=== PATIENT | female | born 1935 | race Caucasian/White ===

== ENCOUNTER 2019-02-15 12:29 | Emergency (ER) | payer MEDICARE ==
[~2019-02-15] VITALS: Ht 152.4 cm; Wt 54.4 kg
--- OUTSIDE RECORDS SUMMARY | 2019-02-15 12:32 | XMS REPORT | Summary of Care ---
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 She is supposed to be on thyroid medication but this is unsupervised and I suspect it is not being taken. This can cause cognitive impairment and gait disorder. If the thryoid is not abnormal, the etiology of her gait disorder is then unknown and would require further evaluation. Originally documented as Thyroid disease. 2Data migrated from [employer] on 07/16/15. Unclear etiology from exam. Originally documented as Gait abnormality. Allergies, Adverse Reactions, Alerts Substance Reaction Severity Status Ambien Active Bactrim Active NKFA Active Multaq Active Medications No data available for this section Results No data available for this section Immunizations No data available for this section Procedures Procedure Date Related Diagnosis Body Site Appendectomy1 Arthroscopy2 Cardiac ablation using fluoroscopy guidance3 L total Knee replacement Lumpectomy of breast4 Radiation therapy care5 LAUREEN - Total abdominal hysterectomy6 Tonsillectomy7 Total replacement of left knee joint 1done 1999 2left knee 3done 2009 4left breast done 2010 5done 2010 6done 1964 7done 1945 Social History Social History Type Response Exercise 1 Employment/School Status: Retired. Highest education level: High school. Alcohol Current, Frequency: 1-2 times per year. Previous treatment: None. Alcohol use interferes with work or home: No. Drinks more than intended: No. Others hurt by drinking: No. Ready to change: No. Household alcohol concerns: No. Smoking Status Never smoker; Previous treatment: None; Ready to change: No; Concerns about tobacco use in household: No; Exposure to Tobacco Smoke None; Cigarette Smoking Last 365 Days No; Reg Smoking Cessation Counseling No 1no Assessment and Plan No data available for this section
--- OUTSIDE RECORDS SUMMARY | 2019-02-15 12:32 | XMS REPORT | Summary of Care ---
Author Author [facility] Organization [facility] Address Unknown Phone Unavailable Encounter ANTWAN Dejesus(NITHYA) [id number] Date(s): 04/12/15 - 04/13/15 [facility] [address] [place] [address]- Discharge Disposition: Against Medical Advise Attending Physician: Jaguar Stroud MD Vital Signs Most recent to 1 oldest [Reference Range]: Height 157.48 cm (04/12/15 11:37 PM) Most recent to 1 oldest [Reference Range]: Temperature Oral 97.7 DegF [96.4-99.1 DegF] (04/12/15 11:37 PM) Most recent to 1 oldest [Reference Range]: Blood Pressure 121/77 mmHg [90-140/60-90 mmHg] (04/12/15 11:37 PM) Most recent to 1 oldest [Reference Range]: Respiratory Rate 18 BRMIN [14-20 BRMIN] (04/12/15 11:37 PM) Most recent to 1 oldest [Reference Range]: Peripheral Pulse 78 bpm Rate [60-100 bpm] (04/12/15 11:37 PM) Most recent to 1 oldest [Reference Range]: Weight 59.091 kg (04/12/15 11:37 PM) Most recent to 1 oldest [Reference Range]: Body Mass Index 23.83 m2 (04/12/15 11:37 PM) Problem List No data available for this section Allergies, Adverse Reactions, Alerts Substance Reaction Severity Status Ambien Active Bactrim Active Multaq Active NKFA Active Medications Saline Flush 0.9% 10 mL, Route: IVP, Drug Form: INJ, Dosing Weight 59.091, kg, PRN, PRN Line Flush , Start date: 04/13/15 0:04:00, Duration: 30 day, Stop date: 05/12/15 23:03:00 Notes: (Same as: BD Posiflush) Start Date: 04/13/15 Stop Date: 04/13/15 Status: Discontinued Sodium Chloride 0.9% IV (Sodium Chloride 0.9% (Bolus) IV) 500 mL, 500 ml/hr, Infuse Over: 1 hr, Route: IV, 500, Drug form: INJ, ONCE, Prio rity: STAT, Dosing Weight 59.091 kg, Start date: 04/13/15 0:04:00, Duration: 1 d oses or times, Stop date: 04/13/15 0:04:00 Start Date: 04/13/15 Stop Date: 04/13/15 Status: Completed Results ELECTROLYTES Most recent to 1 oldest [Reference Range]: Sodium Lvl [135-145 135 mEq/L mEq/L] (04/13/15 12:50 AM) Potassium Lvl 4.2 mEq/L [3.5-5.1 mEq/L] (04/13/15 12:50 AM) Chloride Lvl [95-109 104 mEq/L mEq/L] (04/13/15 12:50 AM) CO2 [24-32 mEq/L] 19 mEq/L *LOW* (04/13/15 12:50 AM) AGAP [10.0-20.0 16.2 mEq/L mEq/L] (04/13/15 12:50 AM) CHEM PANEL Most recent to 1 oldest [Reference Range]: Creatinine Lvl 1.1 mg/dL [0.5-1.4 mg/dL] (04/13/15 12:50 AM) eGFR 48 mL/min/1.73m2 1 *NA* (04/13/15 12:50 AM) BUN [7-22 mg/dL] 17 mg/dL (04/13/15 12:50 AM) Glucose Lvl [70-99 109 mg/dL mg/dL] *HI* (04/13/15 12:50 AM) Calcium Lvl 9.2 mg/dL [8.5-10.5 mg/dL] (04/13/15 12:50 AM) 1Result Comment: The eGFR is calculated using the CKD-EPI formula. In most young, healthy individuals the eGFR will be >90 mL/min/1.73m2. The eGFR declines with age. An eGFR of 60-89 may be normal in some populations, particularly the elderly, for whom the CKD-EPI formula has not been extensively validated. Use of the eGFR is not recommended in the following populations: Individuals with unstable creatinine concentrations, including patients and those with serious co-morbid conditions. Patients with extremes in muscle mass or diet. The data above are obtained from the National Kidney Disease Education Program ( NKDEP) which additionally recommends that when the eGFR is used in patients with extremes of body mass index for purposes of drug dosing, the eGFR should be mul tiplied by the estimated BMI. CARDIAC ENZYMES Most recent to 1 oldest [Reference Range]: Total CK [12-191 90 unit/L unit/L] (04/13/15 12:50 AM) CK MB [0.5-3.6 0.9 ng/mL ng/mL] (04/13/15 12:50 AM) CK MB Index 1.0 [0.0-2.5] (04/13/15 12:50 AM) Troponin-I <0.02 ng/mL [0.00-0.40 ng/mL] (04/13/15 12:50 AM) HEMATOLOGY Most recent to 1 oldest [Reference Range]: WBC [3.7-10.4 K/CMM] 6.5 K/CMM (04/13/15 12:50 AM) RBC [4.20-5.40 4.11 M/CMM M/CMM] *LOW* (04/13/15 12:50 AM) Hgb [12.0-16.0 g/dL] 12.4 g/dL (04/13/15 12:50 AM) Hct [36.0-48.0 %] 37.4 % (04/13/15 12:50 AM) MCV [80.0-98.0 fL] 91.0 fL (04/13/15 12:50 AM) MCH [27.0-31.0 pg] 30.3 pg (04/13/15 12:50 AM) MCHC [32.0-36.0 33.3 g/dL g/dL] (04/13/15 12:50 AM) RDW [11.5-14.5 %] 14.1 % (04/13/15 12:50 AM) Platelet [133-450 221 K/CMM K/CMM] (04/13/15 12:50 AM) MPV [7.4-10.4 fL] 7.3 fL *LOW* (04/13/15 12:50 AM) Segs [45.0-75.0 %] 74.2 % (04/13/15 12:50 AM) Lymphocytes 17.6 % [20.0-40.0 %] *LOW* (04/13/15 12:50 AM) Monocytes [2.0-12.0 5.8 % %] (04/13/15 12:50 AM) Eosinophils [0.0-4.0 1.5 % %] (04/13/15 12:50 AM) Basophils [0.0-1.0 0.9 % %] (04/13/15 12:50 AM) Segs-Bands # 4.8 K/CMM [1.5-8.1 K/CMM] (04/13/15 12:50 AM) Lymphocytes # 1.1 K/CMM [1.0-5.5 K/CMM] (04/13/15 12:50 AM) Monocytes # [0.0-0.8 0.4 K/CMM K/CMM] (04/13/15 12:50 AM) Eosinophils # 0.1 K/CMM [0.0-0.5 K/CMM] (04/13/15 12:50 AM) Basophils # [0.0-0.2 0.1 K/CMM K/CMM] (04/13/15 12:50 AM) Immunizations No data available for this section Procedures Procedure Date Related Diagnosis Body Site Appendectomy1 Arthroscopy2 Cardiac ablation using fluoroscopy guidance3 L total Knee replacement Lumpectomy of breast4 Radiation therapy care5 LAUREEN - Total abdominal hysterectomy6 Tonsillectomy7 Total replacement of left knee joint 1done 1999 2left knee 3done 2009 4left breast done 2010 5done 2010 6done 1964 7done 6 Social History Social History Type Response Exercise 1 Alcohol Current, Frequency: 1-2 times per year. [...]
--- OUTSIDE RECORDS SUMMARY | 2019-02-15 12:32 | XMS REPORT | Continuity of Care Document ---
Author Author [employer] Organization [facility] [employer] Address Unknown Phone Unavailable Care Team Providers Care Check Scaler Name Role Phone [facility] [employer] [facility] Unavailable Unavailable Problems Problem Status Onset Date Classification Date Reported Comments Source Disease of thyroid gland (disorder) Active 01/29/2016 Problem 12/28/2017 Data migrated from [employer] on 07/16/15. She is supposed to be on thyroid medication but this is unsupervised and I suspect it is not being taken. This can cause cognitive impairment and gait dis order. If the thryoid is not abnormal, the etiology of her gait disorder is then unknown and would require further evaluation. Originally documented as Thyroid disease. [facility] Neuro SYNCOPE Active 04/12/2015 [facility] 782.3 - EDEMA 782.0 - SKIN SENSATION Active 07/11/2014 [facility] AFIB Active 11/02/2013 [facility] Atrial fibrillation (disorder) Resolved Problem 12/28/2017 [facility] Dementia with behavioral disturbance (disorder) Active Problem 12/28/2017 [facility] Hypothyroidism (disorder) Resolved Problem 12/28/2017 [facility] Malignant tumor of breast (disorder) Resolved Problem 12/28/2017 [facility] ankle swelling(Confirmed) Active Problem 01/07/2014 [facility] chronic cough(Confirmed) Active Problem 01/07/2014 [facility] osteoarthritis of left knee(Confirmed) Active Problem 01/07/2014 [facility] ATRIAL FIBRILLATION Active [facility] Medications Medication Details Route Status Patient Instructions Ordering Provider Order Date Source Sodium Chloride 0.154 MEQ/ML Injectable Solution 500 mL, 500 ml/hr, Infuse Over: 1 hr, Route: IV, 500, Drug form: INJ, ONCE, Priority: STAT, Dosing Weight 59.091 kg, Start date: 04/13/15 0:04:00, Duration: 1 doses or times, Stop date: 04/13/15 0:04:00 Inactive 04/13/2015 [facility] Saline Flush 0.9% 10 mL, Route: IVP, Drug Form: INJ, Dosing Weight 59.091, kg, PRN, PRN Line Flush, Start date: 04/13/15 0:04:00, Duration: 30 day, Stop date: 05/12/15 23:03:00Notes: (Same as: BD Posiflush) Inactive 04/13/2015 [facility] Xarelto 10 mg, 1 tab, Route: PO, Drug form: TAB, ONCE, Dosing Weight 59.091, kg, Start date: 11/24/13 13:30:00, Stop date: 11/24/13 13:30:00Notes: (Same as: Xarelto) Do Not Crush Inactive 11/24/2013 [facility] rivaroxaban 10 MG Oral Tablet [Xarelto] 10 mg=1 tab, PO, Daily, # 30 tab, 0 Refill(s) Active 11/24/2013 [facility] letrozole 2.5 mg, 1 tab, Route: PO, Drug form: TAB, Daily, Dosing Weight 59.091, kg, Start date: 11/24/13 9:00:00, Duration: 30 day, Stop date: 12/23/13 9:00:00Notes: (Same as:Femara) Inactive 11/24/2013 [facility] venlafaxine 37.5 mg, 1 tab, Route: PO, Drug form: TAB, Daily, Dosing Weight 59.091, kg, Start date: 11/24/13 9:00:00, Duration: 30 day, Stop date: 12/23/13 9:00:00Notes: (Same As: Effexor) Inactive 11/24/2013 [facility] meloxicam 7.5 mg, 1 tab, Route: PO, Drug form: TAB, Daily, Dosing Weight 59.091, kg, Start date: 11/24/13 9:00:00, Duration: 30 day, Stop date: 12/23/13 9:00:00Notes: (Same as: Mobic) Inactive 11/24/2013 [facility] Thyroxine 75 microgram, 1 tab, Route: PO, Drug form: TAB, Q630AM, Dosing Weight 59.091, kg, Start date: 11/24/13 6:30:00, Duration: 30 day, Stop date: 12/23/13 6:30:00Notes: Take 1 hour before or 2 hours after meal; Enteral feeds may interefere with the absorption of this medication. (Same as:Synthroid, Levothroid) Inactive 11/24/2013 [facility] heparin 25,000 unit [13.54 unit/kg/hr] + Premix Diluent Dextrose 5% 500 mL 500 mL, Rate: 16 ml/hr, Infuse over: 31.3 hr, Route: IV, Dosing Weight 59.091 kg, Total Volume: 500, Start date: 11/24/13 2:00:00, Duration: 30 day, Stop date: 12/24/13 1:59:00 Inactive 11/24/2013 [facility] 0.6 ML Enoxaparin sodium 100 MG/ML Prefilled Syringe [Lovenox] 60 mg, SUB-Q, Q12H, # 20 syr, 0 Refill(s) No Longer Active 11/23/2013 [facility] Acetaminophen 325 MG / Hydrocodone Bitartrate 5 MG Oral Tablet 1 tab, Route: PO, Drug Form: TAB, Dosing Weight 59.091, kg, Q4H, PRN Pain Score 1-5, Start date: 11/23/13 16:47:00, Duration: 30 day, Stop date: 12/23/13 16:46:00Notes: (Same as: [place] 325/5) Do not exceed 4gm/day of acetaminophen. No Longer Active 11/23/2013 [facility] Melatonin 20 mg, 6.67 tab, Route: PO, Drug form: TAB, Bedtime, Dosing Weight 59.091, kg, PRN as needed for insomnia, Start date: 11/23/13 16:42:00, Duration: 30 day, Stop date: 12/23/13 16:41:00Notes: (Same as: Melatonin) Non-Formulary Drug No Longer Active 11/23/2013 [facility] rivaroxaban 10 MG Oral Tablet [Xarelto] PO, Daily, 0 Refill(s) No Longer Active 11/23/2013 [facility] letrozole 2.5 mg oral tablet 2.5 mg=1 tab, PO, Daily, # 10 tab, 0 Refill(s) Active 11/22/2013 [facility] venlafaxine 37.5 mg oral tablet 37.5 mg=1 tab, PO, Daily, # 60 tab, 0 Refill(s) Active 11/22/2013 [facility] meloxicam 7.5 mg oral tablet 7.5 mg=1 tab, PO, Daily, # 30 tab, 0 Refill(s) Active 11/22/2013 [facility] Melatonin 5 mg oral tablet 20 mg=4 tab, PO, Bedtime, for insomnia, # 60 tab, 0 Refill(s) Active 11/22/2013 [facility] levothyroxine 75 mcg (0.075 mg) oral tablet 75 microgram=1 tab, PO, Daily, # 30 tab, 0 Refill(s) Active 11/22/2013 [facility] Allergies, Adverse Reactions, Alerts Substance Category Reaction Severity Reaction type Status Date Reported Comments Source Ambien Assertion Drug allergy Active [facility] Bactrim Assertion Drug allergy Active [facility] NKFA Assertion Drug allergy Active [facility] Multaq Assertion Drug allergy Active [facility] Immunizations No Data Provided for This Section Results Order Name Results Value Reference Range Date Interpretation Comments Source CARDIAC ENZYMES CK MB Index 1.0 0.0 - 2.5 04/13/2015 [facility] CARDIAC ENZYMES Total CK 90 12 - 191 04/13/2015 [facility] CARDIAC ENZYMES Troponin-I <0.02 0.00 - 0.40 04/13/2015 [facility] CARDIAC ENZYMES CK MB 0.9 0.5 - 3.6 04/13/2015 [facility] CHEM PANEL eGFR 48 04/13/2015 Result Comment: The eGFR is calculated using the [...] from the National Kidney Disease Education Program (NKDEP) which additionally recommends that when the eGFR is used in patients with extremes of body mass index for purposes of drug dosing, the eGFR should be multiplied by the estimated BMI. [facility] CHEM PANEL Glucose Lvl 109 70 - 99 04/13/2015 [facility] CHEM PANEL Calcium Lvl 9.2 8.5 - 10.5 04/13/2015 [facility] CHEM PANEL CO2 19 24 - 32 04/13/2015 [facility] CHEM PANEL Chloride Lvl 104 95 - 109 04/13/2015 [facility] CHEM PANEL Potassium Lvl 4.2 3.5 - 5.1 04/13/2015 [facility] CHEM PANEL Sodium Lvl 135 135 - 145 04/13/2015 [facility] CHEM PANEL Creatinine Lvl 1.1 0.5 - 1.4 04/13/2015 [facility] CHEM PANEL BUN 17 7 - 22 04/13/2015 [facility] CHEM PANEL AGAP 16.2 10.0 - 20.0 04/13/2015 [facility] HEMATOLOGY Lymphocytes # 1.1 1.0 - 5.5 04/13/2015 [facility] HEMATOLOGY Monocytes # 0.4 0.0 - 0.8 04/13/2015 [facility] HEMATOLOGY Eosinophils # 0.1 0.0 - 0.5 04/13/2015 [facility] HEMATOLOGY Basophils # 0.1 0.0 - 0.2 04/13/2015 [facility] HEMATOLOGY Basophils 0.9 0.0 - 1.0 04/13/2015 [facility] HEMATOLOGY Segs-Bands # 4.8 1.5 - 8.1 04/13/2015 [facility] HEMATOLOGY Segs 74.2 45.0 - 75.0 04/13/2015 [facility] HEMATOLOGY Monocytes 5.8 2.0 - 12.0 04/13/2015 [facility] HEMATOLOGY Lymphocytes 17.6 20.0 - 40.0 04/13/2015 [facility] HEMATOLOGY Eosinophils 1.5 0.0 - 4.0 04/13/2015 [facility] HEMATOLOGY MPV 7.3 7.4 - 10.4 04/13/2015 [facility] HEMATOLOGY Platelet 221 133 - 450 04/13/2015 [facility] HEMATOLOGY RDW 14.1 11.5 - 14.5 04/13/2015 [facility] HEMATOLOGY Hgb 12.4 12.0 - 16.0 04/13/2015 [facility] HEMATOLOGY MCHC 33.3 32.0 - 36.0 04/13/2015 [facility] HEMATOLOGY MCH 30.3 27.0 - 31.0 04/13/2015 [facility] HEMATOLOGY MCV 91.0 80.0 - 98.0 04/13/2015 [facility] HEMATOLOGY Hct 37.4 36.0 - 48.0 04/13/2015 [facility] HEMATOLOGY RBC 4.11 4.20 - 5.40 04/13/2015 [facility] HEMATOLOGY WBC 6.5 3.7 - 10.4 04/13/2015 [facility] PTT 25.5 22.9 - 35.8 11/24/2013 <sup>7</sup>Interpretive Data: Heparin Therapeutic Range: 57 - 92 Seconds [facility] INR 1.09 0.85 - 1.17 11/24/2013 <sup>5</sup>Interpretive Data: RECOMMENDED RANGES FOR PROTIME INR:
2.0-3.0 for most medical and surgical thromboembolic states.
2.5-3.5 for artificial heart valves and recurrent embolism.

INR SHOULD BE USED ONLY FOR PATIENTS ON STABLE ANTICOAGULANT THERAPY. [facility] PT 14.0 12.0 - 14.7 11/24/2013 [facility] CHEM PANEL eGFR 54 11/24/2013 <sup>1</sup>Result Comment: The eGFR is calculated using the CKD-EPI formula. In most young, healthy individuals the eGFR will be >90 mL/min/1.73m2. The eGFR declines with age. An eGFR of 60-89 may be normal in some populations, particularly the elderly, for whom the CKD-EPI formula has not been extensively validated. Use of the eGFR is not recommended in the following populations:& lt;br/>
Individuals with unstable creatinine concentrations, including patients and those with serious co-morbid conditions.

Patients with extremes in muscle mass or diet.

The data above are obtained from the National Kidney Disease Education Program (NKDEP) which additionally recommends that when the eGFR is used in patients with extremes of body mass index for purposes of drug dosing, the eGFR should be multiplied by the estimated BMI. [facility] CHEM PANEL Calcium Lvl 8.9 8.5 - 10.5 11/24/2013 [facility] CHEM PANEL Potassium Lvl 3.8 3.5 - 5.1 11/24/2013 [facility] CHEM PANEL Chloride Lvl 107 95 - 109 11/24/2013 [facility] CHEM PANEL CO2 25 24 - 32 11/24/2013 [facility] CHEM PANEL Glucose Lvl 101 70 - 99 11/24/2013 <sup>3</sup>Interpretive Data: Adult reference range values reflect the clinical guidelines
of the [place] [employer]. [facility] CHEM PANEL Sodium Lvl 140 135 - 145 11/24/2013 [facility] CHEM PANEL BUN 17 7 - 22 11/24/2013 [facility] CHEM PANEL Creatinine Lvl 1.0 0.5 - 1.4 11/24/2013 [facility] CHEM PANEL AGAP 11.8 10.0 - 20.0 11/24/2013 [facility] HEMATOLOGY Eosinophils # 0.3 0.0 - 0.5 11/24/2013 [facility] HEMATOLOGY Monocytes # 0.5 0.0 - 0.8 11/24/2013 [facility] Lymphocytes # 1.0 1.0 - 5.5 11/24/2013 [facility] Segs-Bands # 2.9 1.5 - 8.1 11/24/2013 [facility] Lymphocytes 21.8 20.0 - 40.0 11/24/2013 [facility] Segs 62.0 45.0 - 75.0 11/24/2013 [facility] Monocytes 10.0 2.0 - 12.0 11/24/2013 [facility] Basophils 0.2 0.0 - 1.0 11/24/2013 [facility] Eosinophils 6.0 0.0 - 4.0 11/24/2013 [facility] MCV 88.5 81.0 - 99.0 11/24/2013 [facility] Hct 33.3 36.0 - 48.0 11/24/2013 [facility] Platelet 162 133 - 450 11/24/2013 [facility] RBC 3.76 4.20 - 5.40 11/24/2013 [facility] Hgb 11.1 12.0 - 16.0 11/24/2013 [facility] WBC 4.6 3.7 - 10.4 11/24/2013 [facility] MCHC 33.5 32.0 - 36.0 11/24/2013 [facility] RDW 14.5 11.5 - 14.5 11/24/2013 [facility] MCH 29.6 27.0 - 31.0 11/24/2013 [facility] MPV 7.8 7.4 - 10.4 11/24/2013 [facility] POC Activated Clotting Time 176 11/24/2013 [facility] HEMATOLOGY POC Activated Clotting Time 234 11/23/2013 [facility] HEMATOLOGY POC Activated Clotting Time 226 11/23/2013 [facility] BLOOD BANK RESULTS ABO/Rh A POS 11/23/2013 [facility] BLOOD BANK RESULTS Antibody Scrn Negative (11/23/13 9:15 AM) 11/23/2013 [facility] CHEM PANEL eGFR 54 11/23/2013 <sup>2</sup>Result Comment: The eGFR is calculated using the CKD-EPI formula. In most young, healthy individuals the eGFR will be >90 mL/min/1.73m2. The eGFR declines with age. An eGFR of 60-89 may be normal in some populations, particularly the elderly, for whom the CKD-EPI formula has not been extensively validated. Use of the eGFR is not recommended in the following populations:& lt;br/>
Individuals with unstable creatinine concentrations, including patients and those with serious co-morbid conditions.

Patients with extremes in muscle mass or diet.

The data above are obtained from the National Kidney Disease Education Program (NKDEP) which additionally recommends that when the eGFR is used in patients with extremes of body mass index for purposes of drug dosing, the eGFR should be multiplied by the estimated BMI. [facility] CHEM PANEL Calcium Lvl 9.4 8.5 - 10.5 11/23/2013 [facility] CHEM PANEL CO2 26 24 - 32 11/23/2013 [facility] CHEM PANEL Chloride Lvl 107 95 - 109 11/23/2013 [facility] CHEM PANEL Sodium Lvl 140 135 - 145 11/23/2013 [facility] CHEM PANEL Potassium Lvl 4.3 3.5 - 5.1 11/23/2013 [facility] CHEM PANEL Glucose Lvl 95 70 - 99 11/23/2013 <sup>4</sup>Interpretive Data: Adult reference range values reflect the clinical guidelines
of the [place] [employer]. [facility] CHEM PANEL Creatinine Lvl 1.0 0.5 - 1.4 11/23/2013 [facility] CHEM PANEL BUN 17 7 - 22 11/23/2013 [facility] CHEM PANEL AGAP 11.3 10.0 - 20.0 11/23/2013 [facility] HEMATOLOGY Hct 36.5 36.0 - 48.0 11/23/2013 [facility] HEMATOLOGY RBC 4.09 4.20 - 5.40 11/23/2013 [facility] Hgb 12.2 12.0 - 16.0 11/23/2013 [facility] MCV 89.3 81.0 - 99.0 11/23/2013 [facility] MCHC 33.3 32.0 - 36.0 11/23/2013 [facility] RDW 14.3 11.5 - 14.5 11/23/2013 [facility] MCH 29.7 27.0 - 31.0 11/23/2013 [facility] Platelet 207 133 - 450 11/23/2013 [facility] MPV 7.4 7.4 - 10.4 11/23/2013 [facility] WBC 4.6 3.7 - 10.4 11/23/2013 [facility] Monocytes # 0.5 0.0 - 0.8 11/23/2013 [facility] Eosinophils # 0.2 0.0 - 0.5 11/23/2013 [facility] Basophils # 0.0 0.0 - 0.2 11/23/2013 [facility] Segs 64.5 45.0 - 75.0 11/23/2013 [facility] Monocytes 10.8 2.0 - 12.0 11/23/2013 [facility] Eosinophils 4.4 0.0 - 4.0 11/23/2013 [facility] Lymphocytes 20.0 20.0 - 40.0 11/23/2013 [facility] Segs-Bands # 3.0 1.5 - 8.1 11/23/2013 [facility] Basophils 0.3 0.0 - 1.0 11/23/2013 [facility] Lymphocytes # 0.9 1.0 - 5.5 11/23/2013 [facility] INR 1.03 0.85 - 1.17 11/23/2013 <sup>6</sup>Interpretive Data: RECOMMENDED RANGES FOR PROTIME INR:
2.0-3.0 for most medical and surgical thromboembolic states.
2.5-3.5 for artificial heart valves and recurrent embolism.

INR SHOULD BE USED ONLY FOR PATIENTS ON STABLE ANTICOAGULANT THERAPY. [facility] PTT 35.4 22.9 - 35.8 11/23/2013 <sup>8</sup>Interpretive Data: Heparin Therapeutic Range: 57 - 92 Seconds [facility] PT 13.4 12.0 - 14.7 11/23/2013 [facility] Pathology Reports No Data Provided for This Section Diagnostic Reports Report Value Date Source Chest 1view DX Clinical History : See Clinic Indication , Syncope Exam : Portable AP view of the chest Apr 13, 2015 12:20:00 AM Comparisons : PA and lateral views of the chest January 04, 2014 Findings : There is mild diffuse peribronchial thickening throughout the lungs bilaterally. There is no focal consolidation or pleural effusion.. The heart is stable in size. The mediastinal contours are distorted by patient rotation to the right and otherwise grossly normal. There are degenerative changes throughout the thoracic spine and bilateral acromioclavicular joints. The ribs and shoulders are normal in appearance. There are surgical clips in the left axilla. Limited evaluation of the upper abdomen demonstrates no gross abnormalities. Impressions: Rotated exam with mild peribronchial thickening, likely representing interstitial edema. 04/13/2015 [facility] Brain wo contrast CT Clinical History : See Clinic Indication , Syncopal episode at dinner. Pt has been having diarrhea all day. Denies pain at this time. pt acting normally and denies not feeling well prior to syncopal episode. Hx of afib. Denies head injury. Pt disoriented to time Exam : CT Head without contrast Apr 13, 2015 12:17:00 AM Comparisons : none. Technique : Volumetric CT acquisition was performed through the brain. Images in the axial, coronal, and sagittal planes were presented for interpretation. Radiation dose : Total [id number] Findings: The soft tissue structures of the face, scalp, and orbits are normal. The globes remain intact. There is opacification of the left maxillary sinus. There is also partial opacification of the ethmoid air cells. The rest of the paranasal sinuses and mastoid air cells are clear. The calvarium remains intact. There is no acute intracranial hemorrhage, midline shift, or mass effect. There is moderate generalized brain atrophy. The degree of ventricular dilation is commensurate with the degree of atrophy. There are moderate periventricular and subcortical white matter changes throughout the bilateral cerebral hemispheres. The posterior fossa structures are normal in appearance. There is no CT evidence of acute infarction. There are vascular calcifications in the bilateral vertebral and carotid arteries. Impressions: 1. No acute intracranial process. 2. Generalized brain atrophy and small vessel ischemic changes. 04/13/2015 [facility] Consultation Notes No Data Provided for This Section Discharge Summaries No Data Provided for This Section History and Physicals No Data Provided for This Section Vital Signs Vital Sign Value Date Comments Source Respitory Rate 18 04/13/2015 [facility] Heart Rate 78 04/13/2015 [facility] Temperature Oral (F) 97.7 F 04/13/2015 [facility] Height 157.48 cm 04/13/2015 [facility] BMI Calculated 23.83 04/13/2015 [facility] Weight 59.091 04/13/2015 [facility] Systolic (mm Hg) 121 04/13/2015 [facility] Diastolic (mm Hg) 77 04/13/2015 [facility] Temperature Oral (F) 98.3 F 11/24/2013 [facility] Heart Rate 78 11/24/2013 [facility] Respitory Rate 20 11/24/2013 [facility] Diastolic (mm Hg) 67 11/24/2013 [facility] Systolic (mm Hg) 145 11/24/2013 [facility] Diastolic (mm Hg) 73 11/24/2013 [facility] Systolic (mm Hg) 154 11/24/2013 [facility] Heart Rate 73 11/24/2013 [facility] Respitory Rate 20 11/24/2013 [facility] Temperature Oral (F) 98.5 F 11/24/2013 [facility] Respitory Rate 20 11/24/2013 [facility] Diastolic (mm Hg) 71 11/24/2013 [facility] Systolic (mm Hg) 163 11/24/2013 [facility] Heart Rate 73 11/24/2013 [facility] Temperature Oral (F) 98.0 F 11/24/2013 [facility] Weight 59.091 11/24/2013 [facility] BMI Calculated 23.83 11/24/2013 [facility] Height 157.48 cm 11/24/2013 [facility] BMI Calculated 23.83 11/22/2013 [facility] Weight 59.091 11/22/2013 [facility] Height 157.48 cm 11/22/2013 [facility] Encounters Location Location Details Encounter Type Encounter Number Reason For Visit Attending Provider ADM Date DC Date Status Source [facility] OBS Observation Patient [id number] Ale Leon 11/23/2013 11/24/2013 [facility] Outpatient Imaging [facility] Outpt Diag Services [id number] Ale Leon 01/04/2014 01/05/2014 JESSIED [facility] [id number] Jaguar Stroud 04/13/2015 04/13/2015 [facility] Outpatient [id number] KAREN JOHN 01/29/2016 Active [facility] Outpatient [id number] KAREN JOHN 02/11/2016 Active [facility] Outpatient [id number] KAREN JOHN 09/22/2016 Active [facility] Outpatient [id number] KAREN JOHN 11/04/2016 Active [facility] Outpatient [id number] KAREN JOHN 12/22/2016 Active [facility] Outpatient [id number] ALTOONA JOHN 03/24/2017 Active [facility] [place] Neuro[facility] Phone Message [id number] 05/11/2017 05/13/2017 [facility] [place] [facility] Phone Message [id number] 09/10/2017 09/12/2017 [facility] Neuro [facility] Neurology [facility] Phone Message [id number] 09/10/2017 09/12/2017 [facility] Neuro Outpatient [id number] MALIK CHRISTOPHER 09/21/2017 Active [facility] Neurology [facility] Ambulatory Pre-Reg [id number] [facility] 09/21/2017 09/21/2017 [facility] Neuro Procedures Procedure Code Date Perfomer Comments Source Appendectomy<sup>1</sup> [id number] done 1999 [facility] Arthroscopy<sup>2</sup> [id number] left knee [facility] Cardiac ablation using fluoroscopy guidance<sup>3</sup> [id number] done 2009 [facility] L total Knee replacement [id number] [facility] Lumpectomy of breast<sup>4</sup> [id number] left breast done 2010 [facility] Radiation therapy care<sup>5</sup> [id number] done 2010 [facility] LAUREEN - Total abdominal hysterectomy<sup>6</sup> [id number] done 1964 [facility] Tonsillectomy<sup>7</sup> [id number] done 1945 [facility] Total replacement of left knee joint [id number] [facility] Hospital Assessment and Plan No Data Provided for This Section Plan of Care No Data Provided for This Section Social History Social History Date Source Social History TypeResponse Exercise 1 Employment/School Status: Retired. Highest education [...] Days No; Reg Smoking Cessation Counseling No entered on: 03/24/17 1no 11/22/2013 [facility] Social History TypeResponse Exercise 1 Alcohol Use: Current, Frequency: 1-2 times per year, Previous treatment: None, Has alcohol use interfered with work or home life? No, Do you ever drink more than intended? No, Has anyone been hurt or at risk by your drinking? No, Ready to change: No, Concerns about alcohol use in household: No Smoking Status Never smoker, Exposure to Tobacco Smoke None, Cigarette Smoking Last 365 Days No, Reg Smoking Cessation Counseling No 1no 11/22/2013 [facility] Social [facility] TypeResponse Exercise 1 Alcohol Current, Frequency: 1-2 times [...] No; Reg Smoking Cessation Counseling No 1no 11/22/2013 [facility] Social [facility] TypeResponse Exercise 1 Alcohol Use: Current, Frequency: 1-2 times per year, Previous treatment: None, Has alcohol use interfered with work or home life? No, Do you ever drink more than intended? No, Has anyone been hurt or at risk by your drinking? No, Ready to change: No, Concerns about alcohol use in household: No Smoking Status Never smoker, Exposure to Tobacco Smoke None, Cigarette Smoking Last 365 Days No, Reg Smoking Cessation Counseling No 1no 11/22/2013 [facility] Family History No Data Provided for This Section Advance Directives No Data Provided for This Section Functional Status No Data Provided for This Section
--- OUTSIDE RECORDS SUMMARY | 2019-02-15 12:32 | XMS REPORT | Summary of Care ---
Author Organization Unknown Address Unknown Phone Unavailable Encounter ANTWAN Dejesus(NITHYA) [id number] Date(s): 11/23/13 - 11/24/13 [facility] [address] [place], [place] [id number] [place] [address] Discharge Disposition: Home Physician Attending: Ale Leon MD Physician_Referring: Ale Leon MD Reason for Visit AFIB Vital Signs 1 2 3 Most recent to oldest [Reference Range]: 157.48 cm (11/23/13 9:23 PM) 157.48 cm (11/22/13 10:58 AM) Height 63.273 kg (11/24/13 6:00 AM) Current Weight 98.3 DegF (11/24/13 3:12 PM) 98.5 DegF (11/24/13 11:25 AM) 98.0 DegF (11/24/13 7:41 AM) Temperature Oral [96.4-99.1 DegF] 145 mmHg *HI* (11/24/13 3:12 PM) 154 mmHg *HI* (11/24/13 11:25 AM) 163 mmHg *HI* (11/24/13 7:41 AM) Systolic Blood Pressure [90-140 mmHg] 67 mmHg (11/24/13 3:12 PM) 73 mmHg (11/24/13 11:25 AM) 71 mmHg (11/24/13 7:41 AM) Diastolic Blood Pressure [60-90 mmHg] 20 BRMIN (11/24/13 3:12 PM) 20 BRMIN (11/24/13 11:25 AM) 20 BRMIN (11/24/13 7:41 AM) Respiratory Rate [14-20 BRMIN] 78 bpm (11/24/13 3:12 PM) 73 bpm (11/24/13 11:25 AM) 73 bpm (11/24/13 7:41 AM) Peripheral Pulse Rate [60-100 bpm] 59.091 kg (11/23/13 9:23 PM) 59.091 kg (11/22/13 10:58 AM) Weight 23.83 m2 (11/23/13 9:23 PM) 23.83 m2 (11/22/13 10:58 AM) Body Mass Index Problem List Condition Effective Dates Status Health Status Informant ankle Active swelling(Confirmed) chronic Active cough(Confirmed) osteoarthritis of Active left knee(Confirmed) Allergies, Adverse Reactions, Alerts Substance Reaction Severity Status Ambien Active Bactrim Active Multaq Active NKFA Active Medications acetaminophen-hydrocodone 325 mg-5 mg oral tablet 1 tab, Route: PO, Drug Form: TAB, Dosing Weight 59.091, kg, Q4H, PRN Pain Score 1-5, Start date: 11/23/13 16:47:00, Duration: 30 day, Stop date: 12/23/13 16:46: 00 Notes: (Same as: [place] 325/5) Do not exceed 4gm/day of acetaminophen. Start Date: 11/23/13 Stop Date: 11/24/13 Status: Discontinued heparin 25,000 unit [13.54 unit/kg/hr] + Premix Diluent Dextrose 5% 500 mL 500 mL, Rate: 16 ml/hr, Infuse over: 31.3 hr, Route: IV, Dosing Weight 59.091 kg , Total Volume: 500, Start date: 11/24/13 2:00:00, Duration: 30 day, Stop date: 12/24/13 1:59:00 Start Date: 11/24/13 Stop Date: 11/24/13 Status: Discontinued letrozole 2.5 mg, 1 tab, Route: PO, Drug form: TAB, Daily, Dosing Weight 59.091, kg, Start date: 11/24/13 9:00:00, Duration: 30 day, Stop date: 12/23/13 9:00:00 Notes: (Same as:Femara) Start Date: 11/24/13 Stop Date: 11/24/13 Status: Discontinued letrozole 2.5 mg oral tablet 2.5 mg=1 tab, PO, Daily, # 10 tab, 0 Refill(s) Start Date: 11/22/13 Stop Date: 12/02/13 Status: Ordered levothyroxine 75 microgram, 1 tab, Route: PO, Drug form: TAB, Q630AM, Dosing Weight 59.091, kg , Start date: 11/24/13 6:30:00, Duration: 30 day, Stop date: 12/23/13 6:30:00 Notes: Take 1 hour before or 2 hours after meal; Enteral feeds may interefere wi th the absorption of this medication. (Same as:Synthroid, Levothroid) Start Date: 11/24/13 Stop Date: 11/24/13 Status: Discontinued levothyroxine 75 mcg (0.075 mg) oral tablet 75 microgram=1 tab, PO, Daily, # 30 tab, 0 Refill(s) Start Date: 11/22/13 Status: Ordered Lovenox 60 mg/0.6 mL subcutaneous solution 60 mg, SUB-Q, Q12H, # 20 syr, 0 Refill(s) Start Date: 11/23/13 Stop Date: 11/24/13 Status: Discontinued melatonin 20 mg, 6.67 tab, Route: PO, Drug form: TAB, Bedtime, Dosing Weight 59.091, kg, P RN as needed for insomnia, Start date: 11/23/13 16:42:00, Duration: 30 day, Stop date: 12/23/13 16:41:00 Notes: (Same as: Melatonin) Non-Formulary Drug Start Date: 11/23/13 Stop Date: 11/24/13 Status: Discontinued Melatonin 5 mg oral tablet 20 mg=4 tab, PO, Bedtime, for insomnia, # 60 tab, 0 Refill(s) Start Date: 11/22/13 Status: Ordered meloxicam 7.5 mg, 1 tab, Route: PO, Drug form: TAB, Daily, Dosing Weight 59.091, kg, Start date: 11/24/13 9:00:00, Duration: 30 day, Stop date: 12/23/13 9:00:00 Notes: (Same as: Mobic) Start Date: 11/24/13 Stop Date: 11/24/13 Status: Discontinued meloxicam 7.5 mg oral tablet 7.5 mg=1 tab, PO, Daily, # 30 tab, 0 Refill(s) Start Date: 11/22/13 Status: Ordered venlafaxine 37.5 mg, 1 tab, Route: PO, Drug form: TAB, Daily, Dosing Weight 59.091, kg, Star t date: 11/24/13 9:00:00, Duration: 30 day, Stop date: 12/23/13 9:00:00 Notes: (Same As: Effexor) Start Date: 11/24/13 Stop Date: 11/24/13 Status: Discontinued venlafaxine 37.5 mg oral tablet 37.5 mg=1 tab, PO, Daily, # 60 tab, 0 Refill(s) Start Date: 11/22/13 Status: Ordered Xarelto 10 mg, 1 tab, Route: PO, Drug form: TAB, ONCE, Dosing Weight 59.091, kg, Start d ate: 11/24/13 13:30:00, Stop date: 11/24/13 13:30:00 Notes: (Same as: Xarelto)Do Not Crush Start Date: 11/24/13 Stop Date: 11/24/13 Status: Completed Xarelto 10 mg oral tablet PO, Daily, 0 Refill(s) Start Date: 11/23/13 Stop Date: 11/24/13 Status: Discontinued Xarelto 10 mg oral tablet 10 mg=1 tab, PO, Daily, # 30 tab, 0 Refill(s) Start Date: 11/24/13 Stop Date: 12/24/13 Status: Ordered Results BLOOD BANK RESULTS 1 2 3 Most recent to oldest [Reference Range]: A POS *Unknown* (11/23/13 9:15 AM) ABO/Rh Negative (11/23/13 9:15 AM) Antibody Scrn ELECTROLYTES 1 2 3 Most recent to oldest [Reference Range]: 140 mEq/L (11/24/13 6:00 AM) 140 mEq/L (11/23/13 9:15 AM) Sodium Lvl [135-145 mEq/L] 3.8 mEq/L (11/24/13 6:00 AM) 4.3 mEq/L (11/23/13 9:15 AM) Potassium Lvl [3.5-5.1 mEq/L] 107 mEq/L (11/24/13 6:00 AM) 107 mEq/L (11/23/13 9:15 AM) Chloride Lvl [95-109 mEq/L] 25 mEq/L (11/24/13 6:00 AM) 26 mEq/L (11/23/13 9:15 AM) CO2 [24-32 mEq/L] 11.8 mEq/L (11/24/13 6:00 AM) 11.3 mEq/L (11/23/13 9:15 AM) AGAP [10.0-20.0 mEq/L] CHEM PANEL 1 2 3 Most recent to oldest [Reference Range]: 1.0 mg/dL (11/24/13 6:00 AM) 1.0 mg/dL (11/23/13 9:15 AM) Creatinine Lvl [0.5-1.4 mg/dL] 54 mL/min/1.73m2 1 *NA* (11/24/13 6:00 AM) 54 mL/min/1.73m2 2 *NA* (11/23/13 9:15 AM) eGFR 17 mg/dL (11/24/13 6:00 AM) 17 mg/dL (11/23/13 9:15 AM) BUN [7-22 mg/dL] 101 mg/dL 3 *HI* (11/24/13 6:00 AM) 95 mg/dL 4 (11/23/13 9:15 AM) Glucose Lvl [70-99 mg/dL] 8.9 mg/dL (11/24/13 6:00 AM) 9.4 mg/dL (11/23/13 9:15 AM) Calcium Lvl [8.5-10.5 mg/dL] 1Result Comment: The eGFR is calculated using [...] be mul tiplied by the estimated BMI. 2Result Comment: The eGFR is calculated using the [...] be mul tiplied by the estimated BMI. 3Interpretive Data: Adult reference range values reflect the clinical guidelines of the [place] [employer]. 4Interpretive Data: Adult reference range values reflect the clinical guidelines of the [place] [employer]. HEMATOLOGY 1 2 3 Most recent to oldest [Reference Range]: 4.6 K/CMM (11/24/13 6:00 AM) 4.6 K/CMM (11/23/13 9:15 AM) WBC [3.7-10.4 K/CMM] 3.76 M/CMM *LOW* (11/24/13 6:00 AM) 4.09 M/CMM *LOW* (11/23/13 9:15 AM) RBC [4.20-5.40 M/CMM] 11.1 g/dL *LOW* (11/24/13 6:00 AM) 12.2 g/dL (11/23/13 9:15 AM) Hgb [12.0-16.0 g/dL] 33.3 % *LOW* (11/24/13 6:00 AM) 36.5 % (11/23/13 9:15 AM) Hct [36.0-48.0 %] 88.5 fL (11/24/13 6:00 AM) 89.3 fL (11/23/13 9:15 AM) MCV [81.0-99.0 fL] 29.6 pg (11/24/13 6:00 AM) 29.7 pg (11/23/13 9:15 AM) MCH [27.0-31.0 pg] 33.5 g/dL (11/24/13 6:00 AM) 33.3 g/dL (11/23/13 9:15 AM) MCHC [32.0-36.0 g/dL] 14.5 % (11/24/13 6:00 AM) 14.3 % (11/23/13 9:15 AM) RDW [11.5-14.5 %] 162 K/CMM (11/24/13 6:00 AM) 207 K/CMM (11/23/13 9:15 AM) Platelet [133-450 K/CMM] 7.8 fL (11/24/13 6:00 AM) 7.4 fL (11/23/13 9:15 AM) MPV [7.4-10.4 fL] 62.0 % (11/24/13 6:00 AM) 64.5 % (11/23/13 9:15 AM) Segs [45.0-75.0 %] 21.8 % (11/24/13 6:00 AM) 20.0 % (11/23/13 9:15 AM) Lymphocytes [20.0-40.0 %] 10.0 % (11/24/13 6:00 AM) 10.8 % (11/23/13 9:15 AM) Monocytes [2.0-12.0 %] 6.0 % *HI* (11/24/13 6:00 AM) 4.4 % *HI* (11/23/13 9:15 AM) Eosinophils [0.0-4.0 %] 0.2 % (11/24/13 6:00 AM) 0.3 % (11/23/13 9:15 AM) Basophils [0.0-1.0 %] 2.9 K/CMM (11/24/13 6:00 AM) 3.0 K/CMM (11/23/13 9:15 AM) Segs-Bands # [1.5-8.1 K/CMM] 1.0 K/CMM (11/24/13 6:00 AM) 0.9 K/CMM *LOW* (11/23/13 9:15 AM) Lymphocytes # [1.0-5.5 K/CMM] 0.5 K/CMM (11/24/13 6:00 AM) 0.5 K/CMM (11/23/13 9:15 AM) Monocytes # [0.0-0.8 K/CMM] 0.3 K/CMM (11/24/13 6:00 AM) 0.2 K/CMM (11/23/13 9:15 AM) Eosinophils # [0.0-0.5 K/CMM] 0.0 K/CMM (11/23/13 9:15 AM) Basophils # [0.0-0.2 K/CMM] 14.0 seconds (11/24/13 2:55 PM) 13.4 seconds (11/23/13 9:15 AM) PT [12.0-14.7 seconds] 1.09 5 (11/24/13 2:55 PM) 1.03 6 (11/23/13 9:15 AM) INR [0.85-1.17] 176 seconds *NA* (11/23/13 7:05 PM) 234 seconds *NA* (11/23/13 6:08 PM) 226 seconds *NA* (11/23/13 4:43 PM) POC Activated Clotting Time 25.5 seconds 7 (11/24/13 2:55 PM) 35.4 seconds 8 (11/23/13 9:15 AM) PTT [22.9-35.8 seconds] 5Interpretive Data: RECOMMENDED RANGES FOR PROTIME INR: 2.0-3.0 for most medical and surgical thromboembolic states. 2.5-3.5 for artificial heart valves and recurrent embolism. INR SHOULD BE USED ONLY FOR PATIENTS ON STABLE ANTICOAGULANT THERAPY. 6Interpretive Data: RECOMMENDED RANGES FOR PROTIME INR: 2.0-3.0 for most medical and surgical thromboembolic states. 2.5-3.5 for artificial heart valves and recurrent embolism. INR SHOULD BE USED ONLY FOR PATIENTS ON STABLE ANTICOAGULANT THERAPY. 7Interpretive Data: Heparin Therapeutic Range: 57 - 92 Seconds 8Interpretive Data: Heparin Therapeutic Range: 57 - 92 Seconds Medications Administered During Your Visit No data available for this section Immunizations No data available for this section Social History Social History Type Response Exercise 1 Alcohol Use: Current, Frequency: 1-2 [...]
--- OUTSIDE RECORDS SUMMARY | 2019-02-15 12:32 | XMS REPORT | Summary of Care ---
Author Organization Unknown Address Unknown Phone Unavailable Encounter HQ Oleg(NITHYA) [id number] Date(s): 01/04/14 - 01/04/14 [facility] Outpatient Imaging [address] [facility] [address] Discharge Disposition: Home Physician Attending: Ale Leon MD Reason for Visit 786.05 - SHORTNESS OF BR 786.7 - ABNORMAL CHEST Problem List Condition Effective Dates Status Health Status Informant ankle Active swelling(Confirmed) chronic Active cough(Confirmed) osteoarthritis of Active left knee(Confirmed) Allergies, Adverse Reactions, Alerts Substance Reaction Severity Status Ambien Active Bactrim Active Multaq Active NKFA Active Medications No data available for this section Medications Administered During Your Visit No data [...]
--- OUTSIDE RECORDS SUMMARY | 2019-02-15 12:32 | XMS REPORT | Summary of Care ---
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 She is supposed to be on thyroid medication but this is unsupervised and I suspect it is not being taken. This can cause cognitive impairment and gait disorder. If the thryoid is not abnormal, the etiology of her gait disorder is then unknown and would require further evaluation. Originally documented as Thyroid disease. 2Data migrated from [employer] on 07/16/15. Unclear etiology from exam. Originally documented as Gait abnormality. Allergies, Adverse Reactions, Alerts Substance Reaction Severity Status Ambien Active Bactrim Active NKFA Active Multaq Active Medications No data available for this section Results No data available for this section Immunizations No data available for this section Procedures Procedure Date Related Diagnosis Body Site Status Appendectomy1 Completed Arthroscopy2 Completed Cardiac ablation using fluoroscopy guidance3 Completed L total Knee replacement Completed Lumpectomy of breast4 Completed Radiation therapy care5 Completed LAUREEN - Total abdominal hysterectomy6 Completed Tonsillectomy7 Completed Total replacement of left knee joint Completed 1done 1999 2left knee 3done 2009 4left [...] Cessation Counseling No entered on: 03/24/17 1no Assessment and Plan No data available for this section
--- OUTSIDE RECORDS SUMMARY | 2019-02-15 12:33 | XMS REPORT | Summary of Care ---
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 She is supposed to be on thyroid medication but this is unsupervised and I suspect it is not being taken. This can cause cognitive impairment and gait disorder. If the thryoid is not abnormal, the etiology of her gait disorder is then unknown and would require further evaluation. Originally documented as Thyroid disease. 2Data migrated from [employer] on 07/16/15. Unclear etiology from exam. Originally [...]
--- OUTSIDE RECORDS SUMMARY | 2019-02-15 12:33 | XMS REPORT ---
Author Author [facility] Address Unknown Phone Unavailable Care Team Providers Care Footwear Stitcher Name Role Phone Unavailable Unavailable Payers Payer Name Policy Type Policy Number Effective Date Expiration Date Problems This patient has no known problems. Allergies, Adverse Reactions, Alerts Allergy Name Allergy Type Status Severity Reaction(s) Onset Date Inactive Date Treating Clinician Comments sulfamethoxazole DA Active MO 2018-04-28 00:00:00 trimethoprim DA Active MO 2018-04-28 00:00:00 zolpidem DA Active 2018-04-28 00:00:00 Medications This patient has no known medications.
--- OUTSIDE RECORDS SUMMARY | 2019-02-15 12:33 | XMS REPORT | Summary of Care ---
Author Author ZAHIRA [facility] Organization [facility] Neurology 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 She is supposed to be on thyroid medication but this is unsupervised and I suspect it is not being taken. This can cause cognitive impairment and gait disorder. If the thryoid is not abnormal, the etiology of her gait disorder is then unknown and would require further evaluation. Originally documented as Thyroid disease. 2Data migrated from [employer] on 07/16/15. Unclear etiology from exam. Originally [...]
--- OUTSIDE RECORDS SUMMARY | 2019-02-15 12:33 | XMS REPORT | Summary of Care ---
Author Author 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 She is supposed to be on thyroid medication but this is unsupervised and I suspect it is not being taken. This can cause cognitive impairment and gait disorder. If the thryoid is not abnormal, the etiology of her gait disorder is then unknown and would require further evaluation. Originally documented as Thyroid disease. 2Data migrated from [employer] on 07/16/15. Unclear etiology from exam. Originally [...] done 2010 5done 2010 6done 1964 7done 1946 Social History Social History Type Response Exercise [...]
[2019-02-15] MEDS ORDERED: SODIUM CHLORIDE 0.9% 1000ML 1,000 ML IV ONE (13:15)
[2019-02-15] MEDS ORDERED: ACETAMINOPHEN 1000 MG/100 ML IV NR (13:30)
[2019-02-15 14:10] LABS: BILIRUBIN,URINE NEGATIVE (NEGATIVE); CLARITY,URINE SL CLOUDY (CLEAR); COLOR,URINE YELLOW (YELLOW); KETONES,URINE NEGATIVE (NEGATIVE); LEUKOCYTE ESTERASE ,URINE NEGATIVE (NEGATIVE); NITRITE,URINE NEGATIVE (NEGATIVE); PROTEIN,URINE DIPSTICK NEGATIVE (NEGATIVE); URINE UROBILINOGEN 0.2 mg/dL (0.2 - 1)
[2019-02-15 14:13] LABS: BASOPHILS % 0.4 % (0.0-1.0); EOSINOPHILS # (AUTO) 0.2 (0.0-0.4); EOSINOPHILS % 3.1 % (0.0-6.0); HEMATOCRIT 30.2 % (34.2-44.1); HEMOGLOBIN 9.7 g/dL (12.0-16.0); LYMPHOCYTES # (AUTO) 1.8 (1.0-3.2); LYMPHOCYTES % 26.4 % (18.0-39.1); MEAN CORPUSCULAR HEMOGLOBIN 30.9 pg (28-32); MEAN CORPUSCULAR HGB CONC 32.1 g/dL (31-35); MEAN CORPUSCULAR VOLUME 96.2 fL (81-99); MONOCYTES # (AUTO) 0.4 (0.2-0.8); MONOCYTES % 5.5 % (4.4-11.3); NEUTROPHILS # (AUTO) 4.4 (2.1-6.9); NEUTROPHILS % 64.2 % (38.7-80.0); PLATELET COUNT 336 x10e3/uL (140-360); RED BLOOD COUNT 3.14 x10e6/uL (3.6-5.1); RED CELL DISTRIBUTION WIDTH 14.3 % (11.7-14.4)
[2019-02-15 14:18] LABS: INR 0.89; PARTIAL THROMBOPLASTIN TIME 25.6 seconds (23.8-35.5); PROTHROMBIN TIME 12.5 seconds (11.9-14.5)
[2019-02-15 14:26] LABS: BACTERIA,URINE MODERATE /HPF; EPITHELIAL CELLS,URINE FEW /LPF; RENAL EPITHELIAL CELLS,URINE RARE; WBC,URINE (MAN) 0-5 /HPF (0-5)
[2019-02-15 14:27] LABS: ALANINE AMINOTRANSFERASE 10 IU/L (0-55); ALBUMIN 3.1 g/dL (3.5-5.0); ALBUMIN/GLOBULIN RATIO 0.7 (0.8-2.0); ALKALINE PHOSPHATASE 52 IU/L (40-150); ANION GAP 14.6 mmol/L (8-16); BLOOD UREA NITROGEN 15 mg/dL (7-26); BUN/CREATININE RATIO 21 (6-25); CALCIUM 10.2 mg/dL (8.4-10.2); CARBON DIOXIDE 27 mmol/L (22-29); CHLORIDE 100 mmol/L (98-107); CREATININE, SERUM 0.71 mg/dL (0.57-1.11); EST GLOMERULAR FILTRATION RATE > 60 ML/MIN (60-); GLUCOSE 107 mg/dL (74-118); POTASSIUM 4.6 mmol/L (3.5-5.1); SODIUM 137 mmol/L (136-145)
[2019-02-15] MEDS ORDERED: NEOSTIGMINE 1 MG/ML 10ML VIAL ONE (15:09)
[2019-02-15] MEDS ORDERED: NEOMYCIN/POLYMYXIN/BACITRACIN 15 GM TUBE TOP PRN (15:15)
--- NOTE | 2019-02-15 15:51 | NUR ---
[facility] CALLED FOR TRANSPORTATION BACK TO [facility]. ETA [id number].
--- NOTE | 2019-02-15 15:51 | NUR ---
EVERETT LUQUE CALLED AND NOTIFIED PT IS BEING D/C BACK TO FACILITY.
[2019-02-15 16:52] VITALS: BP 142/74
== END 2019-02-15 16:55 | disposition home or self-care (01) ==
LOC: ER 12:29
DX: R50.9 Fever, unspecified (principal); L89.223 Pressure ulcer of left hip, stage 3; L89.152 Pressure ulcer of sacral region, stage 2; E03.9 Hypothyroidism, unspecified
CPT/HCPCS: 36415; 80053; 81001; 83605; 85025; 85610; 85730; 87040; 87071; 87086; 87186; 87205; 99284; J2710; J7030